=== PATIENT | male | born 1985 | race Caucasian/White ===

== ENCOUNTER 2020-02-06 15:01 | Emergency (ER) | payer SELFPAY ==
[~2020-02-06] VITALS: Ht 182.9 cm; Wt 101.0 kg
--- NOTE | 2020-02-06 15:35 | NUR ---
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
[2020-02-06] MEDS ORDERED: LIDOCAINE-MPF 1%, 5ML ONE ×2 (16:07→16:09)
[2020-02-06] MEDS ORDERED: HYDROcodone/APAP 5/325 TABLET ONE ×2 (16:08→16:13)
[2020-02-06] MEDS ORDERED: HYDROcodone/APAP 5/325 TABLET PO ONE (16:30)
[2020-02-06] MEDS ORDERED: LIDOCAINE-MPF 1%, 5ML INFIL ONE (16:30)
[2020-02-06] MEDS ORDERED: PLEASE ENTER ALLERGIES MC SCH (16:30)
--- NOTE | 2020-02-06 17:21 | NUR ---
PT REPORTS IMPROVED PAIN, DENIES NEED FOR FURTHER PAIN MEDS. ABX REQUESTED FROM PHARMACY VIA YELLOW SLIP
[2020-02-06] MEDS ORDERED: CEFAZOLIN PMX 2GM/50ML 50 ML IVPB ONE (17:30)
[2020-02-06] MEDS ORDERED: SODIUM CHLORIDE FLUSH 10ML SYR IVF ONE (17:30)
--- NOTE | 2020-02-06 18:04 | NUR ---
ABX INITIATED, NO BC DRAWN PRIOR PER ERP. TECH AT BEDSIDE TO DRESS WOUND/SPINT
[2020-02-06 18:19] VITALS: BP 133/98
--- NOTE | 2020-02-06 18:38 | NUR ---
NO S/S OF ABX RXN NOTED. SO AT BEDSIDE. POC IS DC POST OBS
--- NOTE | 2020-02-06 18:52 | NUR ---
NO S/S OF ABX RXN NOTED. DC EDUCATION PROVIDED, PT DEMONSTRATES UNDERSTANDING. PT AMBULATED STEADILY TO DC WITH RN AND SO. SO TO TRANSPORT PT HOME.
== END 2020-02-06 18:53 | disposition home or self-care (01) ==
LOC: ED 18:45
DX: S62.663B Nondisplaced fracture of distal phalanx of left middle finger, initial encounter for open fracture (principal); F17.200 Nicotine dependence, unspecified, uncomplicated; W23.1XXA Caught, crushed, jammed, or pinched between stationary objects, initial encounter; Y93.89 Activity, other specified; Y92.009 Unspecified place in unspecified non-institutional (private) residence as the place of occurrence of the external cause; Y99.8 Other external cause status
CPT/HCPCS: 29130; 73130; 96365; 99284; J0690